=== PATIENT | female | born 1995 | race African-American/Black ===

== ENCOUNTER 2017-10-27 19:43 | Emergency (ER) | payer OTHER ==
[~2017-10-27] VITALS: Ht 147.3 cm; Wt 77.1 kg
[~2017-10-27 19:43] MED LIST: BENTYL20 MG PO; NORCO 5-325 TA1 EACH PO; PHENERGAN 25 MG25 MG PO; ZOFRAN 4 MG ORAL4 M1 DIS
[2017-10-27] MEDS ORDERED: NOHOMEMEDICATIONS (20:00)
[2017-10-27] MEDS ORDERED: BACTROBAN CREAM30 G1 TOP (20:04)
[2017-10-27 20:35] VITALS: BP 119/71
== END 2017-10-27 20:35 | disposition home or self-care (01) ==
LOC: M.ERS 19:43
DX: S80.862A Insect bite (nonvenomous), left lower leg, initial encounter (principal); W57.XXXA Bitten or stung by nonvenomous insect and other nonvenomous arthropods, initial encounter; Y93.89 Activity, other specified; Y92.89 Other specified places as the place of occurrence of the external cause; Y99.8 Other external cause status

== ENCOUNTER 2018-05-18 19:09 | Emergency (ER) | payer OTHER ==
[~2018-05-18] VITALS: Ht 149.9 cm; Wt 68.0 kg
[~2018-05-18 19:09] MED LIST changes: +BACTROBAN CREAM30 G1 TOP; +NOHOMEMEDICATIONS
[2018-05-18] MEDS ORDERED: ERRIN0.35 MG PO (19:18)
[2018-05-18 19:43] LABS: URINE BILIRUBIN NEGATIVE (Negative); URINE BLOOD 2+ (Negative); URINE CLARITY CLEAR; URINE COLOR YELLOW; URINE GLUCOSE-RANDOM NEGATIVE (Negative); URINE KETONES 1+ (Negative); URINE LEUKOCYTES-REFLEX 1+ (Negative); URINE NITRITE-REFLEX NEGATIVE (Negative); URINE PROTEIN NEGATIVE (Negative); URINE SPECIFIC GRAVITY 1.025 (1.005-1.030); URINE UROBILINOGEN 0.2 E.U./dl (0.2-1.0)
[2018-05-18 19:49] LABS: CASTS None Seen /LPF (None Seen); CRYSTALS None Seen /LPF (None Seen); MUCUS >6 Heavy strn/LPF (None Seen); SQUAMOUS >10 Many /LPF (0-3); URINE RBC 3-10 Few /HPF (0-2)
[2018-05-18 20:07] LABS: ABSOLUTE LYMPHOCYTES 1.3 thou/uL (0.8-5.3); ABSOLUTE MONOCYTES 0.8 thou/uL (0.0-1.2); ABSOLUTE NEUTROPHILS 10.1 thou/uL (1.6-8.1); BASOPHILS 0.2 %; EOSINOPHILS 0.2 %; HEMATOCRIT 40.7 % (37.0-47.0); HEMOGLOBIN 13.8 gm/dL (12.0-15.0); LYMPHOCYTES 10.5 %; MCH 28.9 pg (26.0-34.0); MONOCYTES 6.2 %; MPV 8.4 fl. (7.2-11.1); NUCLEATED RBCS 0 /100WBC; PLATELET COUNT* 265 thou/uL (150-400); POLYS 82.9 %; RBC 4.78 mil/uL (4.20-5.00); RDW-CV 13.1 % (10.5-14.5); WBC 12.2 thou/uL (4.0-11.0)
[2018-05-18 20:10] LABS: CALCIUM 9.2 mg/dL (8.5-10.1); CREATININE 0.8 mg/dL (0.6-1.3); POTASSIUM 3.3 mmol/L (3.5-5.1)
[2018-05-18 20:15] LABS: TOTAL BILIRUBIN 0.6 mg/dL (<0.1-1.0); TOTAL PROTEIN 8.2 g/dL (6.4-8.2)
[2018-05-18] MEDS ORDERED: FLAGYL500 M1 PO (21:15)
[2018-05-18] MEDS ORDERED: CIPRO500 MG PO (21:15)
[2018-05-18 21:36] VITALS: BP 117/63
== END 2018-05-18 21:37 | disposition home or self-care (01) ==
LOC: M.ERS 19:09
PROVIDERS: Physician Assistant
DX: K57.32 Diverticulitis of large intestine without perforation or abscess without bleeding (principal)